=== PATIENT | female | born 1980 | race Caucasian/White ===

== ENCOUNTER 2018-12-18 09:56 | Outpatient (RCR) | payer OTHER ==
[~2018-12-18 09:56] MED LIST: ACHYD1T PO; BIRTH CONTROL PILL PO; DCS100C PO; DOCO200C2 PO; FOLI0.4T2 PO; HYDR-3583 PO; IBP800T PO
== END 2019-03-10 | disposition home or self-care (01) ==
PROVIDERS: ATTEND Orthopaedic Surgery Sports Medicine
DX: Z47.89 Encounter for other orthopedic aftercare (principal)

== ENCOUNTER → 2019-04-30 | Outpatient (CLI) | payer OTHER | LOC: LAB 14:23 | PROVIDERS: ATTEND Nurse Practitioner Family | DX: R05 Cough (principal) | CPT/HCPCS: 36415; 86738 ==

== ENCOUNTER 2019-08-19 05:38 | Outpatient (CLI) | payer OTHER ==
[~2019-08-19] VITALS: Ht 165.1 cm; Wt 55.0 kg
[2019-08-19] MEDS ORDERED: CETI10TA20 PO (15:19)
[2019-08-19] MEDS ORDERED: RANI-613 PO (15:19)
[2019-08-21] MEDS ORDERED: IBUP-1780 PO (12:20)
== END 2019-08-19 15:00 | disposition home or self-care (01) ==
LOC: PREOP 05:38
PROVIDERS: ATTEND Obstetrics & Gynecology
DX: Z01.818 Encounter for other preprocedural examination (principal)

== ENCOUNTER 2019-08-21 13:01 | Day surgery (SDC) | payer OTHER ==
[2019-08-21] VITALS (11 sets, daily range): BP systolic 105–116; BP diastolic 67–82
[~2019-08-21] VITALS: Ht 165.1 cm; Wt 55.0 kg
--- NOTE | 2019-08-21 12:21 | Discharge Instructions ---
Discharge Instructions Discharge Medications New, Converted or Re-Newed RX: Call to Patients Pharmacy Patient Instructions Return to The Hospital For: As directed Activity & Diet Activity as Tolerated: No Orders-Post D/C & Referrals Follow Up Appt: Call to make follow up appt. for patient in 2 weeks. Activity: Rest for 24 hours, than as tolerated. Please call in RX to patient pharmacy. Diet: As tolerated-Clear Liquids only if nauseated. shower or tub bathe as desired. No driving for 24 hours, no alcoholic beverages for 24 hours, and nothing per vagina (no tampons, douching, or intercourse) for 2 weeks. Patient to return to the clinic as soon as possible for: Temperature greater than 101F, Severe Pain, Foul discharge from incision or vagina, Excessive Bleeding (more than a period). WESLEY DAWKINS MD Aug 21, 2019 12:21
--- NOTE | 2019-08-21 12:22 | Progress Note-Pre Operative ---
Pre-Operative Progress Note H&P Reviewed The H&P was reviewed, patient examined and no changes noted. Date Seen by Provider: Aug 21, 2019 Time Seen by Provider: 14:00 Date H&P Reviewed: Aug 21, 2019 Time H&P Reviewed: 14:00 Pre-Operative Diagnosis: dysfunctional uterine bleeding/intrauterine mass WESLEY DAWKINS MD Aug 21, 2019 12:22
--- NOTE | 2019-08-21 12:23 | Progress Note-Post Operative ---
Post-Operative Progess Note Surgeon (s)/Concrete Mixer (s) Surgeon WESLEY DAWKINS MD Concrete Mixer: none Pre-Operative Diagnosis dysfunctional uterine bleeding/intrauterine mass Post-Operative Diagnosis Same with pathology pending Procedure & Operative Findings Date of Procedure 08/21/19 Procedure Performed/Findings Hysteroscopy with myomectomy/directed biopsy and D&C Anesthesia Type GETA Estimated Blood Loss Estimated blood loss (mL): 300 mL Specimens/Packing Specimens Removed intrauterine mass and Packing: None WESLEY DAWKINS MD Aug 21, 2019 12:23
[~2019-08-21 13:01] MED LIST changes: +CETI10TA20 PO; +D5 LR IV SOLUTION 1,000 ML IV SCH; +ESTROGENS CONJ IV 25 MG/5 ML (PREMARIN) VIAL IVP ONE; +IBUP-1780 PO; +KETOROLAC 30 MG/ML VIAL IVP ONE; +MEPERIDINE (DEMEROL) INJ 100 MG/ML IM ONE; +ONDANSETRON 4 MG/2 ML (SDV) Z0FRAN IVP PRN; +PROMETHAZINE INJ 25 MG/ML (PHENERGAN) AMP IM ONE; +RANI-613 PO
[2019-08-21] MEDS: LACTATED RINGERS 1,000 ML IV PRN ×3 (13:15→17:43)
[2019-08-21] MEDS ORDERED: ceFAZolin INJECTION 1,000 MG in WATER (STERILE) FOR INJECTION 10 ML IV ONE (13:45)
[2019-08-21] MEDS ORDERED: fentaNYL INJECTION 100 MCG/2 ML AMP ONE ×2 (13:47→15:19)
[2019-08-21] MEDS ORDERED: MIDAZOLAM 2 MG/2 ML (VERSED) VIAL ONE (13:47)
[2019-08-21] MEDS ORDERED: WATER (STERILE) FOR INJECTION 10 ML ONE ×2 (13:48→16:06)
[2019-08-21] MEDS ORDERED: ceFAZolin INJECTION 1,000 MG ONE (13:48)
[2019-08-21 13:49] LABS: BASOPHILS % (AUTO) 0 % (0-10); EOSINOPHILS % (AUTO) 0 % (0-10); HEMATOCRIT 36 % (35-52); HEMOGLOBIN 12.3 G/DL (11.5-16.0); LYMPHOCYTES # (AUTO) 2.2 X 10^3 (1.0-4.0); LYMPHOCYTES % (AUTO) 38 % (12-44); MEAN CORPUSCULAR HEMOGLOBIN 30 PG (25-34); MEAN CORPUSCULAR HGB CONC 34 G/DL (32-36); MEAN CORPUSCULAR VOLUME 87 FL (80-99); MEAN PLATELET VOLUME 9.9 FL (7.4-10.4); MONOCYTES # (AUTO) 0.3 X 10^3 (0.0-1.0); MONOCYTES % (AUTO) 4 % (0-12); NEUTROPHILS # (AUTO) 3.4 X 10^3 (1.8-7.8); NEUTROPHILS % (AUTO) 58 % (42-75); PLATELET COUNT 197 10^3/uL (130-400); RED CELL DISTRIBUTION WIDTH 12.8 % (10.0-14.5); WHITE BLOOD COUNT 5.8 10^3/uL (4.3-11.0)
[2019-08-21] MEDS ORDERED: DEXAMETHASONE 10 MG/ML (DECADRON) 1 ML VIAL ONE (15:15)
[2019-08-21] MEDS ORDERED: proPOfol 200 MG/20 ML (DIPRIVAN) VIAL IV ONE (15:15)
[2019-08-21] MEDS ORDERED: ONDANSETRON 4 MG/2 ML (SDV) Z0FRAN ONE (15:15)
[2019-08-21] MEDS ORDERED: SEVOFLURANE (ULTANE) 15 ML INHAL SOLN ONE ×4 (15:15→15:54)
[2019-08-21] MEDS ORDERED: LIDOCAINE PF 2% 5 ML (XYLOCAINE) VIAL ONE (15:15)
[2019-08-21] MEDS ORDERED: KETOROLAC 30 MG/ML VIAL ONE (15:16)
[2019-08-21] MEDS ORDERED: ESTROGENS CONJ IV 25 MG/5 ML (PREMARIN) VIAL ONE (16:06)
[2019-08-21] MEDS ORDERED: morphine INJ 10 MG/ML 1ML (SYR OR VIAL) IVP ONE (16:30)
[2019-08-21] MEDS ORDERED: ONDANSETRON 4 MG/2 ML (SDV) Z0FRAN IVP PRN (16:30)
[2019-08-21] MEDS ORDERED: HYDROmorphone 2 MG/ML VIAL (DILAUDID) IV ONE (16:30)
--- NOTE | 2019-08-21 17:00 | NUR ---
TO AMB SURG FROM PAR PER CART. ALERT, DENIES PAIN OR NAUSEA. V-PAD IN PLACE WITH MINIMAL AMOUNT OF BRIGHT RED BLOODY DRAINAGE. ICE CHIPS AND WATER PROVIDED. BED LOW, LOCKED, RAILS UP X2. CALL LIGHT TO PT.
--- NOTE | 2019-08-21 17:31 | Anesthesia-General Post-Op ---
General Patient Condition Mental Status/LOC: Same as Preop Cardiovascular: Satisfactory Nausea/Vomiting: Absent Respiratory: Satisfactory Pain: Controlled Complications: Absent Post Op Complications Complications None Follow Up Care/Instructions Patient Instructions None needed. Anesthesia/Patient Condition Patient Condition Patient is doing well, no complaints, stable vital signs, no apparent adverse anesthesia problems. REYMUNDO RODRÍGUEZ DO Aug 21, 2019 17:31
--- NOTE | 2019-08-21 17:40 | NUR ---
ASSIST UP TO BR, GAIT STEADY. VOIDED CLEAR, YELLOW URINE. MODERATE AMOUNT OF BLOODY DRAINAGE ON V-PAD. PAD CHANGED FOR HOME. ASSIST BACK TO ROOM.
--- NOTE | 2019-08-21 17:42 | NUR ---
C/O NAUSEA ON RETURN TO ROOM FROM BR. ZOFRAN 12 MG GIVEN IV PER ORDER.
--- NOTE | 2019-08-21 18:00 | NUR ---
REPORTS NAUSEA EASING. DR DAWKINS AT BEDSIDE TO DISCUSS SURGICAL OUTCOME WITH PT AND PT'S .
--- NOTE | 2019-08-21 18:25 | NUR ---
REQUESTING DISMISSAL. C/O NAUSEA WITH EMESIS AFTER BEING UP TO DRESS FOR HOME. COOL CLOTH TO BACK OF NECK. REPORTS RELIEF OF NAUSEA AFTER EMESIS AND WISHES TO PROCEED WITH DISMISSAL.
--- NOTE | 2019-08-21 19:01 | OPERATIVE REPORT ---
DATE OF SERVICE: 08/21/2019 PREOPERATIVE DIAGNOSES: Dysfunctional uterine bleeding and intrauterine mass. POSTOPERATIVE DIAGNOSES: Dysfunctional uterine bleeding and intrauterine mass with pathology pending. OPERATIVE PROCEDURE: Hysteroscopy with directed biopsy and resection of intrauterine mass converted to operative hysteroscopy with resectoscope to fragment and morcellate the tissue removal transcervical. OPERATIVE DESCRIPTION: With the patient in supine position under satisfactory general anesthesia, she was repositioned in dorsal lithotomy position in the [facility] and prepped and draped in the usual fashion for vaginal surgery. Urinary bladder was drained with a straight catheter. Weighted speculum placed in posterior fornix of vagina, cervix exposed and grasped anteriorly with single-tooth tenaculum. Uterus was sounded to 11 cm with uterine sound. The cervix was then serially dilated with Jovani dilators to #20 Jovani and then a #9 Hegar dilator was used as final step. The cervix was starting to tear, so a second tenaculum was put on the inferior margin of the cervix as well for stability. The endometrial cavity was examined. There was a large mass emanating from the right posterolateral wall of the uterus. Both tubal ostia were visualized and were normal. The anterior uterine wall was normal. The posterior uterine wall was obscured by this mass. The attachment of the mass to the right lateral and posterior uterine wall was gradually divided by using biopsy forceps to slowly work away at the attachment. This ended up being fairly apparently a uterine fibroid that was barely submucosal, almost pedunculated and eventually, the entire attachment was freed. Minimal blood loss was experienced at this point, but there was some bleeding from the posterior wall of the cervix from the tenaculum. An attempt was made to grasp the mass and remove it, but that could not be done because it was too fibrous and dense, so the procedure was converted to operative resectoscope where the mass was fragmented, morcellated and then removed transcervically in pieces with the final piece eventually grasped with a clamp through the cervix and extracted. All of that tissue was sent to pathology for permanent section. The endometrial cavity was examined with the resectoscope. There was still some tissue at the site of the attachment of this mass that was resected as well. With the entire mass resected with endometrial cavity now appeared normal, the procedure was terminated. The operative instruments were removed under direct vision. There was no significant bleeding from the cervical os. There was some bleeding from the posterior cervical attachment site from the tenaculum, which had shown a small amount of laceration at that point, sutures of #2-0 Vicryl were placed in the posterior wall of the cervix to effect hemostasis after removal of the anterior tenaculum. It was bleeding, BSO [id number] sutures were placed anteriorly to effect complete hemostasis well. The irrigant and blood loss was all aspirated out and collected a total of 6000 mL of irrigation was used. A total of 6300 mL was recovered giving likely an EBL of 300 mL for the procedure. The patient tolerated the procedure well and was uneventfully awakened from her general anesthesia with plans for discharge home PAR. Sponge and needle counts were correct at the end of procedure. Job ID: [id number] DocumentID: [id number] Dictated Date: 08/21/2019 15:55:23 Lead Javascript Engineer Date: 08/21/2019 19:00:24 Dictated By: WESLEY DAWKINS MD
== END 2019-08-21 18:25 | disposition home or self-care (01) ==
LOC: SDC 13:01
PROVIDERS: ATTEND Obstetrics & Gynecology
DX: D25.9 Leiomyoma of uterus, unspecified (principal); N80.0 Endometriosis of uterus; N93.8 Other specified abnormal uterine and vaginal bleeding; Z88.8 Allergy status to other drugs, medicaments and biological substances; Z79.899 Other long term (current) drug therapy
CPT/HCPCS: 36415; 84703; 85025; 87081; 88305

== ENCOUNTER → 2019-08-26 | Outpatient (CLI) | payer OTHER ==
[~2019-08-26] MED LIST changes: -D5 LR IV SOLUTION 1,000 ML IV SCH; -ESTROGENS CONJ IV 25 MG/5 ML (PREMARIN) VIAL IVP ONE; -KETOROLAC 30 MG/ML VIAL IVP ONE; -MEPERIDINE (DEMEROL) INJ 100 MG/ML IM ONE; -ONDANSETRON 4 MG/2 ML (SDV) Z0FRAN IVP PRN; -PROMETHAZINE INJ 25 MG/ML (PHENERGAN) AMP IM ONE
[2019-08-26 14:25] LABS: BASOPHILS % (AUTO) 0 % (0-10); EOSINOPHILS % (AUTO) 1 % (0-10); HEMATOCRIT 35 % (35-52); HEMOGLOBIN 11.9 G/DL (11.5-16.0); LYMPHOCYTES # (AUTO) 2.2 X 10^3 (1.0-4.0); LYMPHOCYTES % (AUTO) 39 % (12-44); MEAN CORPUSCULAR HEMOGLOBIN 30 PG (25-34); MEAN CORPUSCULAR HGB CONC 34 G/DL (32-36); MEAN CORPUSCULAR VOLUME 87 FL (80-99); MEAN PLATELET VOLUME 10.3 FL (7.4-10.4); MONOCYTES # (AUTO) 0.3 X 10^3 (0.0-1.0); MONOCYTES % (AUTO) 5 % (0-12); NEUTROPHILS % (AUTO) 55 % (42-75); PLATELET COUNT 184 10^3/uL (130-400); RED CELL DISTRIBUTION WIDTH 12.5 % (10.0-14.5); WHITE BLOOD COUNT 5.6 10^3/uL (4.3-11.0)
[2019-08-26 14:43] LABS: ALANINE AMINOTRANSFERASE 11 U/L (0-55); ALBUMIN 4.1 GM/DL (3.2-4.5); ALKALINE PHOSPHATASE 74 U/L (40-136); BILIRUBIN,TOTAL 0.3 MG/DL (0.1-1.0); BUN/CREATININE RATIO 14; CALCIUM 8.8 MG/DL (8.5-10.1); CARBON DIOXIDE 26 MMOL/L (21-32); CHLORIDE 106 MMOL/L (98-107); CREATININE SERUM 0.84 MG/DL (0.60-1.30); GFR ESTIMATED > 60; GLUCOSE 127 MG/DL (70-105); POTASSIUM 3.7 MMOL/L (3.6-5.0); SODIUM 138 MMOL/L (135-145); TOTAL PROTEIN 6.8 GM/DL (6.4-8.2)
== END ==
LOC: LAB 14:13
PROVIDERS: ATTEND Nurse Practitioner Family
DX: R53.81 Other malaise (principal); R53.83 Other fatigue
CPT/HCPCS: 36415; 80053; 84443; 85025

== ENCOUNTER → 2021-03-04 | Outpatient (CLI) | payer OTHER ==
[~2021-03-04] MED LIST changes: -CETI10TA20 PO; +CETI10TA49 PO
--- NOTE | 2021-03-04 17:15 | Diagnostic Imaging Report ---
INDICATION: Routine screening. COMPARISON: Prior mammogram from 08/04/2016. EXAMINATION: 2D and 3D bilateral screening mammography was performed with CAD. The current study was also evaluated with a Computer Aided Detection (CAD) system. FINDINGS: Both breasts are heterogeneously dense, limiting the sensitivity of mammography. There are scattered benign calcifications. No mass or malignant appearing microcalcifications are seen. Axillae are unremarkable. IMPRESSION: No mammographic features suspicious for malignancy are identified. ACR BI-RADS Category 2: Benign findings. Result letter will be mailed to the patient. Note: At least 10% of breast cancer is not imaged by mammography. Dictated by: Dictated on workstation # [id number]
== END ==
LOC: RAD 11:00
PROVIDERS: ATTEND Nurse Practitioner Family
DX: Z12.31 Encounter for screening mammogram for malignant neoplasm of breast (principal)
CPT/HCPCS: 77063; 77067

== ENCOUNTER → 2022-03-08 | Outpatient (CLI) | payer OTHER ==
--- NOTE | 2022-03-08 13:54 | Diagnostic Imaging Report ---
INDICATION: Routine screening. Comparison is made with prior mammogram from 03/04/2021 and 08/04/2016. 2-D and 3-D bilateral screening mammography was performed with CAD. CAD is utilized. The current study was also evaluated with a Computer Aided Detection (CAD) system. Both breasts are heterogeneously dense, limiting the sensitivity of mammography. There are occasional benign calcifications. No mass or malignant appearing microcalcifications are seen. Axillae are unremarkable. IMPRESSION: BI-RADS Category 2 No mammographic features suspicious for malignancy are identified. ACR BI-RADS Category 2: Benign findings. Result letter will be mailed to the patient. Note: At least 10% of breast cancer is not imaged by mammography. Dictated by: Dictated on workstation # [id number]
== END ==
LOC: RAD 08:30
PROVIDERS: ATTEND Family Medicine
DX: Z12.31 Encounter for screening mammogram for malignant neoplasm of breast (principal)
CPT/HCPCS: 77063; 77067

== ENCOUNTER → 2023-03-22 | Outpatient (CLI) | payer OTHER ==
--- NOTE | 2023-03-22 11:14 | Diagnostic Imaging Report ---
INDICATION: Screening. EXAMINATION: Bilateral 3D screening mammograms. COMPARISON: 03/08/2022 and 03/04/2021. FINDINGS: There is high breast parenchymal density bilaterally. No new dominant mass or suspicious calcification is identified. Overall, the findings have not significantly changed. IMPRESSION: Category 2, benign findings. High breast parenchymal density limits mammographic sensitivity. Continued physical examination and annual mammographic followup are recommended. ACR BI-RADS Category 2: Benign findings. Result letter will be mailed to the patient. Note: At least 10% of breast cancer is not imaged by mammography. Dictated by: Dictated on workstation # [id number]
== END ==
LOC: RAD 09:45
PROVIDERS: ATTEND Family Medicine
DX: Z12.31 Encounter for screening mammogram for malignant neoplasm of breast (principal); N64.89 Other specified disorders of breast
CPT/HCPCS: 77063; 77067